=== PATIENT | female | born 1985 | race Caucasian/White ===

== ENCOUNTER 2019-12-01 06:38 | Inpatient (IN) | payer OTHER, MEDICAID ==
[~2019-12-01] VITALS: Ht 158.8 cm; Wt 75.5 kg
[2019-12-22] VITALS (17 sets, daily range): BP systolic 84–119; BP diastolic 47–65; PULSE 64–105; TEMP 98.4–99
--- NOTE | 2019-12-22 10:00 | NUR ---
Presents to ob mason for repeat section. Assessment done, questions asked and offered. Father of the baby here.
[2019-12-22] MEDS ORDERED: PRENATAL (10:25)
[2019-12-22 11:18] LABS: BASO % 0.3 % (0.0-2.0); EOS # 0.2 (0.0-0.7); EOS % 1.6 % (0-4.0); GRAN # 10.2 (1.4-6.5); GRAN % 79.8 % (42.2-75.2); HEMOGLOBIN 11.9 g/dl (12.5-16.0); LYMPH # 1.8 (1.2-3.4); LYMPH % 13.8 % (20.0-51.0); MEAN CELL VOLUME 97 fl (80.0-100.0); MEAN CORPUSCULAR HEMOGLOBIN 31 pg (27.0-31.0); MEAN CORPUSCULAR HGB CONC 32 g/dl (33.0-37.0); MEAN PLATELET VOLUME 10.8 fl (7.4-10.4); MONO # 0.5 (0.1-0.6); PLATELET COUNT 208 K/mm3 (130-400); RED BLOOD COUNT 3.82 M/mm3 (4.10-5.30)
[2019-12-23 02:00] VITALS: BP 84/53; PULSE 67; TEMP 98.3
[2019-12-23 06:53] VITALS: BP 96/58; PULSE 76; TEMP 98.2
[2019-12-23 08:35] LABS: HEMOGLOBIN 11.2 g/dl (12.5-16.0)
--- NOTE | 2019-12-23 11:09 | NUR ---
Initial visit; Mom thanked Fitness Floor Attendant for offering congratulations and God's blessings for the of her son. Fitness Floor Attendant thanked mom for choosing [facility].
[2019-12-23 15:50] VITALS: BP 108/78; PULSE 78; TEMP 98.1
[2019-12-23 20:02] VITALS: BP 92/54; PULSE 63; TEMP 98.3
[2019-12-24 07:40] VITALS: BP 101/55; PULSE 69; TEMP 97.9
[2019-12-24] MEDS ORDERED: PERCOCET 325 MG1 TA2 PO (08:45)
[2019-12-24] MEDS ORDERED: IBU600 MG PO (08:45)
== END 2019-12-24 15:55 | disposition home or self-care (01) | DRG 788 ==
LOC: LDR 12-22 06:38 → OB 12-22 09:50 → LDR 12-22 10:23 → OB 12-24 15:55
PROVIDERS: ADMIT Obstetrics & Gynecology
PROC: 10D00Z1 Extraction of Products of Conception, Low, Open Approach (ICD-10-PCS; principal; 2019-12-22)
DX: O34.211 Maternal care for low transverse scar from previous cesarean delivery (principal); Z3A.39 39 weeks gestation of pregnancy; Z37.0 Single live birth
CPT/HCPCS: J0690; J1885; J2175; J2370; J2405; J2590; J2791; J3010; J7120

== ENCOUNTER → 2020-10-25 | Outpatient (CLI) | payer OTHER, MEDICAID ==
[~2020-10-25] MED LIST: IBU600 MG PO; MOTRIN 600600 MG/TAB PO; PERCOCET 325 MG1 TA2 PO; PRENATAL
== END | disposition still patient (30) ==
LOC: ZCOL.LAB 01:38
DX: Z20.822 Contact with and (suspected) exposure to COVID-19 (principal)

== ENCOUNTER 2020-10-28 10:00 | Inpatient (IN) | payer OTHER, MEDICAID ==
[2020-10-28] VITALS (18 sets, daily range): BP systolic 92–105; BP diastolic 46–62; PULSE 68–87; TEMP 97.8–99
[~2020-10-28] VITALS: Ht 160 cm; Wt 81.8 kg
[~2020-10-28 10:00] MED LIST changes: -MOTRIN 600600 MG/TAB PO
--- NOTE | 2020-10-28 10:05 | NUR ---
1005-Patient to 210, Oriented to room. Placed on EFM. IV to R.Hand per JORY Monk. Blood collected and sent to lab per orders. LR infusing per orders. Consents reviewed and signed. Assessment complete. Mons pubis trimmed and and abodmen cleansed per protocol.
[2020-10-28 10:43] LABS: BASO % 0.3 % (0.0-2.0); EOS # 0.3 (0.0-0.7); EOS % 2.1 % (0-4.0); GRAN # 9.6 (1.4-6.5); GRAN % 75.5 % (42.2-75.2); HEMOGLOBIN 11.3 g/dl (12.5-16.0); LYMPH # 2.2 (1.2-3.4); LYMPH % 16.9 % (20.0-51.0); MEAN CELL VOLUME 94 fl (80.0-100.0); MEAN CORPUSCULAR HEMOGLOBIN 30 pg (27.0-31.0); MEAN CORPUSCULAR HGB CONC 32 g/dl (33.0-37.0); MEAN PLATELET VOLUME 11.2 fl (7.4-10.4); MONO # 0.6 (0.1-0.6); MONO % 4.6 % (1.7-9.3); PLATELET COUNT 250 K/mm3 (130-400); RED BLOOD COUNT 3.81 M/mm3 (4.10-5.30); REDCELL DISTRIBUTION WIDTH-CV 14.9 % (11.5-14.5)
[2020-10-28 10:47] LABS: HEMATOCRIT 35.7 % (37.0-47.0)
--- NOTE | 2020-10-28 13:10 | NUR ---
1310-Patient to PACU via bed. A&O x4. VSS, see flow record. Abdomen with dressing C/D/I, Fundal massage firm. Lochia WNL. Binder to abdomen. Recieved report from JAGUAR Conde. Updated patient on recovery plan of care and remained with patient per PACU protocol.
[2020-10-29 00:10] VITALS: BP 95/50; PULSE 78; TEMP 98.1
[2020-10-29 04:15] VITALS: BP 104/61; PULSE 65; TEMP 98.2
[2020-10-29 08:30] VITALS: BP 94/52; PULSE 74; TEMP 98.3
--- NOTE | 2020-10-29 10:11 | NUR ---
Initial visit; Parents thanked Digital Computer Systems Analyst for offering congratulations and God's blessings for the of their son. Digital Computer Systems Analyst thanked family for choosing [facility].
[2020-10-29 17:10] VITALS: BP 101/65; PULSE 74; TEMP 98.6
--- NOTE | 2020-10-29 17:22 | NUR ---
1710 PATIENT CALLED OUT FOR NURSE TO COME TO ROOM. PATIENT REPORTS GETTING UP TO THE BATHROOM AND FEELING NAUSATED, HOT, CLAMMY, AND VERY WEAK. PATIENT PALE IN APPEARANCE AND CLAMMY TO TOUCH. FUNDAL CHECK WNL, VSS, PATIENT REPORTS SCANT/SMALL LOCHIA. THIS RN DISCUSSED WITH PATIENT HOW MUCH SHE HAS ATE TODAY OR IF SHE FELT THAT SHE HAD POSSIBLY GOTTEN UP TOO FAST. PATIENT REVIEWED WHAT SHE HAD EATEN. PATIENT DENIES GETTING UP FAST, HOWVER SIGNIFICANT OTHER REPORTS "I HAD TO TELL HER TO SLOW DOWN". PATIENT AGREEABLE TO TRY TO EAT A SNACK AND SEE IF THIS HELPS WITH SYMPTOMS. BG ALSO CHECKED AT THIS TIME. WILL CONTINUE TO MONITOR.
--- NOTE | 2020-10-29 17:53 | NUR ---
1740 PATIENT VOMITTED AT THIS TIME. APPROXIMATELY 600ML. PATIENT REPORTS FEELING BETTER. WILL CONTINUE TO MONITOR.
[2020-10-29 19:04] VITALS: BP 94/57; PULSE 72; TEMP 98.1
[2020-10-30 07:10] VITALS: BP 93/50; PULSE 75; TEMP 97.9
[2020-10-30 09:26] LABS: COLLECTION METHOD CLEAN CATCH
[2020-10-30] MEDS ORDERED: PERCOCET 325 MG1 TA2 PO (09:32)
[2020-10-30] MEDS ORDERED: MOTRIN 600600 MG/TAB PO (09:32)
[2020-10-30 09:37] LABS: MUCOUS Present /lpf; PH 5 (5-8); URINE APPEARANCE Cloudy; URINE BACTERIA None Seen /hpf; URINE BILIRUBIN Negative (NEGATIVE); URINE BLOOD 3+ (NEGATIVE); URINE COLOR Yellow; URINE GLUCOSE Negative (NEGATIVE); URINE KETONE Negative (NEGATIVE); URINE LEUKOCYTE ESTERASE Negative (NEGATIVE); URINE NITRATE Negative (NEGATIVE); URINE PROTEIN(semi-quant) 2+ (NEGATIVE); URINE RBC >50 /hpf; URINE UROBILINOGEN Negative (NEGATIVE)
== END 2020-10-30 13:40 | disposition home or self-care (01) | DRG 788 ==
LOC: OB 10:00
PROVIDERS: Obstetrics & Gynecology; ADMIT Obstetrics & Gynecology
PROC: 10D00Z1 Extraction of Products of Conception, Low, Open Approach (ICD-10-PCS; principal; 2020-10-28)
DX: O34.211 Maternal care for low transverse scar from previous cesarean delivery (principal); Z3A.39 39 weeks gestation of pregnancy; Z37.0 Single live birth
CPT/HCPCS: J0690; J1885; J2210; J2405; J2550; J2590; J2765; J2791; J7120

== ENCOUNTER → 2022-05-19 | Outpatient (CLI) | payer OTHER, MEDICAID ==
[~2022-05-19] MED LIST changes: +MOTRIN 600600 MG/TAB PO
== END ==
LOC: COL.RAD 15:11
DX: E05.90 Thyrotoxicosis, unspecified without thyrotoxic crisis or storm (principal)